=== PATIENT | male | born 1950 | race Caucasian/White ===

== ENCOUNTER 2018-10-15 08:32 | Outpatient (REF) | payer MEDICARE, BC, SELFPAY ==
[2018-10-15 22:10] LABS: Abs Immature Grans 0.02 k/cumm (0.0-0.09); Absolute Basophil Count 0.08 k/cumm (0.0-0.2); Absolute Eosinophil Count 0.47 k/cumm (0.0-0.7); Absolute Lymphocyte Count 3.16 k/cumm (1.2-3.4); Absolute Monocyte Count 1.18 k/cumm (0.11-0.7); Absolute Neutrophil Count 3.83 k/cumm (1.2-6.7); Basophils % 0.9; Eosinophils % 5.4; HCT 43.3 % (40.0-50.0); Immature Grans % 0.2; Lymphocytes % 36.2; Mean Corp. HGB Concentration 32.3 g/dL (32.0-36.0); Mean Corpuscular Hemoglobin 31.5 pg (27.0-33.0); Mean Corpuscular Volume 97.3 fL (80-95); Mean Platelet Volume 10.5 fL (8.0-11.0); Monocytes % 13.5; Neutrophils % 43.8; Platelet Count 392 x1000/uL (130-400); RBC 4.45 m/cumm (4.50-6.00); RBC Distribution Width 14.1 % (11.8-14.1); White Blood Cell Count 8.74 k/cumm (4.4-10.8)
[2018-10-15 22:17] LABS: BUN 20 mg/dL (7-18); CREATININE 0.69 mg/dL (0.70-1.30); Calcium 8.8 mg/dL (8.5-10.1); Calculated LDL 136 mg/dL; Chloride 104 mmol/L (98-107); Cholesterol 219 mg/dL (50-200); Glucose 87 mg/dL (70-100); HDL Cholesterol 69 mg/dL (40-60); Potassium 3.9 mmol/L (3.5-5.1); Sodium 141 mmol/L (136-145); TSH (W/Ref FT4) 2.67 uIU/mL (0.358-3.74); Triglyceride 71 mg/dL (30-150)
[2018-10-17 09:03] LABS: PSA, Screening 1.9 ng/ml (0-4.5)
== END 2018-10-15 08:52 ==
LOC: NCHCN 08:32
PROVIDERS: Visit Provider Family Medicine
DX: E78.00 Pure hypercholesterolemia, unspecified (principal); N40.0 Benign prostatic hyperplasia without lower urinary tract symptoms; Z12.5 Encounter for screening for malignant neoplasm of prostate
CPT/HCPCS: 80048; 80061; 83721; 84153; 84443; 85025

== ENCOUNTER 2019-10-28 09:43 | Outpatient (REF) | payer MEDICARE, BC, SELFPAY ==
[2019-10-28 20:12] LABS: Calculated LDL 120 mg/dL (<100); Cholesterol 213 mg/dL (<200); Glucose 98 mg/dL (74-106); HDL Cholesterol 76 mg/dL (40-60); Triglyceride 88 mg/dL (<150)
[2019-10-30 08:55] LABS: PSA, Screening 2.5 ng/mL (0.0-4.5)
[2019-10-30 09:08] LABS: HIV-1/2 Ag & Ab Screen Negative (Negative)
== END 2019-10-28 10:03 ==
LOC: NCHCN 09:43
PROVIDERS: Visit Provider Nurse Practitioner Family
DX: Z00.00 Encounter for general adult medical examination without abnormal findings (principal)
CPT/HCPCS: 80061; 82947; 84153; 87389

== ENCOUNTER 2020-01-11 15:42 | Outpatient (REF) | payer MEDICARE, BC, SELFPAY ==
[2020-01-11 21:46] LABS: Abs Immature Grans 0.03 10^3/uL (0.0-0.06); Absolute Basophil Count 0.06 10^3/uL (0.0-0.2); Absolute Eosinophil Count 0.25 10^3/uL (0.0-0.7); Absolute Lymphocyte Count 2.63 10^3/uL (1.2-3.4); Absolute Monocyte Count 0.98 10^3/uL (0.1-0.8); Absolute Neutrophil Count 4.67 10^3/uL (1.2-6.7); Basophils % 0.7; Eosinophils % 2.9; HCT 48.3 % (40.0-50.0); HGB 15.5 g/dL (13.5-17.5); Immature Grans % 0.3; Lymphocytes % 30.5; MCH 31.1 pg (27.0-33.0); MCHC 32.1 % (32.0-36.0); MCV 96.8 fL (80-95); MPV 10.6 fL (8.0-11.0); Monocytes % 11.4; Neutrophils % 54.2; Nucleated RBC 0 %; Platelet Count 411 10^3/uL (130-400); RBC 4.99 10^6/uL (4.36-5.78); RDW 12.9 % (11.8-14.1); RDW-SD 46.2 fL; WBC 8.62 10^3/uL (4.4-10.8)
[2020-01-11 21:57] LABS: ALT 22 U/L (16-63); AST 16 U/L (15-37); Albumin 3.9 g/dL (3.4-5.0); Alkaline Phosphatase 47 U/L (46-116); Anion Gap 9.1 mmol/L (3-11); BUN 17 mg/dL (7-18); Bilirubin, Total 0.5 mg/dL (0.2-1.0); CO2 27.9 mmol/L (21.0-32.0); CREATININE 0.72 mg/dL (0.70-1.30); Calcium 9.3 mg/dL (8.5-10.1); Chloride 102 mmol/L (98-107); Glucose 92 mg/dL (74-106); Sodium 139 mmol/L (136-145); Total Protein 7.1 g/dL (6.4-8.2)
== END 2020-01-11 16:02 ==
LOC: NCHCN 15:42
PROVIDERS: Visit Provider Nurse Practitioner Family
DX: R10.9 Unspecified abdominal pain (principal)
CPT/HCPCS: 80053; 85025

== ENCOUNTER 2020-10-31 08:10 | Outpatient (REF) | payer MEDICARE, BC, SELFPAY ==
[2020-10-31 13:53] LABS: ALT 21 U/L (16-63); AST 17 U/L (15-37); Albumin 4.1 g/dL (3.4-5.0); Alkaline Phosphatase 42 U/L (46-116); Anion Gap 7.8 mmol/L (3-11); BUN 22 mg/dL (7-18); Bilirubin, Total 0.5 mg/dL (0.2-1.0); CO2 30.2 mmol/L (21.0-32.0); CREATININE 0.8 mg/dL (0.70-1.30); Calcium 8.9 mg/dL (8.5-10.1); Calculated LDL 137 mg/dL (<100); Chloride 105 mmol/L (98-107); Cholesterol 222 mg/dL (<200); Glucose 94 mg/dL (74-106); HDL Cholesterol 76 mg/dL (40-60); Potassium 4.7 mmol/L (3.5-5.1); Sodium 143 mmol/L (136-145); Total Protein 6.6 g/dL (6.4-8.2); Triglyceride 46 mg/dL (<150)
[2020-10-31 14:05] LABS: Hemoglobin A1C 5.3 % (<5.7)
[2020-10-31 21:47] LABS: PSA, Screening 2.3 ng/mL (0.0-4.5)
== END 2020-10-31 08:11 | disposition home or self-care (01) ==
LOC: NCHCN 08:10
PROVIDERS: Visit Provider Nurse Practitioner Family
DX: Z00.00 Encounter for general adult medical examination without abnormal findings (principal); E78.00 Pure hypercholesterolemia, unspecified; N40.0 Benign prostatic hyperplasia without lower urinary tract symptoms
CPT/HCPCS: 80053; 80061; 84153; 83036

== ENCOUNTER 2021-11-01 15:49 | Outpatient (REF) | payer MEDICARE, BC, SELFPAY ==
[2021-11-01 18:12] LABS: ALT 25 U/L (16-63); AST 16 U/L (15-37); Albumin 4.2 g/dL (3.4-5.0); Alkaline Phosphatase 54 U/L (46-116); Anion Gap 10.5 mmol/L (3-11); BUN 22 mg/dL (7-18); Bilirubin, Total 0.5 mg/dL (0.2-1.0); CO2 26.5 mmol/L (21.0-32.0); CREATININE 0.8 mg/dL (0.70-1.30); Calcium 9.5 mg/dL (8.5-10.1); Calculated LDL 182 mg/dL (<100); Chloride 104 mmol/L (98-107); Cholesterol 273 mg/dL (<200); Glucose 95 mg/dL (74-106); HDL Cholesterol 79 mg/dL (40-60); Potassium 4.3 mmol/L (3.5-5.1); Sodium 141 mmol/L (136-145); Total Protein 7.2 g/dL (6.4-8.2); Triglyceride 64 mg/dL (<150)
== END 2021-11-01 15:50 | disposition home or self-care (01) ==
LOC: NCHCN 15:49
PROVIDERS: Visit Provider Nurse Practitioner Family
DX: E78.70 Disorder of bile acid and cholesterol metabolism, unspecified (principal); N28.89 Other specified disorders of kidney and ureter; K86.9 Disease of pancreas, unspecified; Z12.5 Encounter for screening for malignant neoplasm of prostate
CPT/HCPCS: 80053; 80061; 84153

== ENCOUNTER 2021-11-23 12:00 | Outpatient (REF) | payer MEDICARE, BC, SELFPAY ==
--- NOTE | 2021-11-23 10:35 | SKI_PTH ---
PATIENT: Scotty Craig LOC: [facility] U#:[id number] AGE/SX: 71/M ROOM: RE11/23/[address]: Michelle Queen : 1950 BED: DIS: 11/23/2021 SPEC #: [id number] RECD: 11/23/21 16:53 STATUS: HUSSEIN REQ #: [id number] GUERO: 11/23/21 10:[address]: Michelle Queen DEPT: Surgical Specimen RECD BY: Jaida Yeh ENTERED: 11/23/21 16:54 SP TYPE: PARKER CABALLERO DR: Darrell Garcia Tissues: 1 - SKIN BIOPSY(SHAVE/PUNCH) Procedures: SKIN LEVEL 4 Comments: [id number]
== END 2021-11-23 12:01 | disposition home or self-care (01) ==
LOC: NCHCN 12:00
PROVIDERS: Visit Provider Nurse Practitioner Family
DX: L43.8 Other lichen planus (principal)
CPT/HCPCS: 88305

== ENCOUNTER 2022-01-18 15:32 | Outpatient (REF) | payer MEDICARE, BC, SELFPAY ==
[2022-01-18 15:13] LABS: Calculated LDL 144 mg/dL (<100); Cholesterol 223 mg/dL (<200); HDL Cholesterol 66 mg/dL (40-60); Triglyceride 65 mg/dL (<150)
== END 2022-01-18 15:33 | disposition home or self-care (01) ==
LOC: NCHCN 15:32
PROVIDERS: Visit Provider Nurse Practitioner Family
DX: E78.70 Disorder of bile acid and cholesterol metabolism, unspecified (principal)
CPT/HCPCS: 80061

== ENCOUNTER 2022-11-30 09:05 | Outpatient (REF) | payer MEDICARE, BC, SELFPAY ==
[2022-11-30 15:34] LABS: HCT 47.2 % (40.0-50.0); HGB 15.7 g/dL (13.5-17.5); MCH 32.7 pg (27.0-33.0); MCHC 33.3 % (32.0-36.0); MCV 98 fL (80-95); MPV 10.7 fL (8.0-11.0); Platelet Count 390 10^3/uL (130-400); RDW 13.3 % (11.8-14.1); WBC 9.41 10^3/uL (4.4-10.8)
[2022-11-30 16:00] LABS: Anion Gap 8.8 mmol/L (3-11); BUN 30 mg/dL (7-18); CO2 26.2 mmol/L (21.0-32.0); CREATININE 0.9 mg/dL (0.70-1.30); Calcium 9.3 mg/dL (8.5-10.1); Chloride 105 mmol/L (98-107); Estimated GFR 91.88 (mL/min/1.73m2); Glucose 103 mg/dL (74-106); Potassium 4.4 mmol/L (3.5-5.1); Sodium 140 mmol/L (136-145)
== END 2022-11-30 09:06 | disposition home or self-care (01) ==
LOC: NCHCN 09:05
PROVIDERS: PCP Family Medicine; Visit Provider Family Medicine
DX: I10 Essential (primary) hypertension (principal); I49.9 Cardiac arrhythmia, unspecified; I48.91 Unspecified atrial fibrillation
CPT/HCPCS: 80048; 85027; 84443

== ENCOUNTER 2023-11-12 18:29 | Outpatient (REF) | payer MEDICARE, BC, SELFPAY ==
[2023-11-12 22:28] LABS: PSA, Screening 2.2 ng/mL (<=6.5)
== END 2023-11-12 18:30 | disposition home or self-care (01) ==
LOC: NCHCN 18:29
PROVIDERS: PCP Family Medicine; Visit Provider Family Medicine
DX: Z12.5 Encounter for screening for malignant neoplasm of prostate (principal)
CPT/HCPCS: 84153

== ENCOUNTER 2024-11-16 15:28 | Outpatient (REF) | payer MEDICARE, BC, SELFPAY ==
[2024-11-16 23:03] LABS: PSA, Screening 2.4 ng/mL (<=6.5)
== END 2024-11-16 15:29 | disposition home or self-care (01) ==
LOC: NCHCN 15:28
PROVIDERS: PCP Family Medicine; Visit Provider Family Medicine
DX: Z12.5 Encounter for screening for malignant neoplasm of prostate (principal)
CPT/HCPCS: 84153